=== PATIENT | female | born 1950 | race Caucasian/White ===

== ENCOUNTER → 2016-04-30 | Outpatient (CLI) | payer OTHER ==
[~2016-04-30] VITALS: Ht 154.9 cm; Wt 63.7 kg
[~2016-04-30] MED LIST: ACETAMINOPHEN-1 EAC1 PO; ALEVE220 MG PO; ASPIR 8181 MG PO; CELEXA20 MG PO; FLEXERIL PO; HYDROCODONE-AP1 EAC6 PO; HYDROCODONE-APA1 TA1 PO; LYRICA150 MG PO; RESTORIL15 MG PO; ROBAXIN500 MG PO; TRAMADOL HCL50 MG PO
--- NOTE | ~2016-04-30 | HPC ---
[facility] [address] [place] [address] PAIN MANAGEMENT CONSULTATION Name: JOVITA RONQUILLO Room #: REG JOHNNA [facility].#: [id number] Admission: 04/30/16 Attend Phys: Renan Rodrigez MD Discharge: Date of : 48 Report #: [id number] THIS REPORT FOR: //name// CC: Aiden Rodrigez DATE OF SERVICE: 04/30/2016 Followup visit for low back pain with radiculopathy secondary to spondylosis and degenerative disk disease. The patient returns to the pain clinic today for repeat of transforaminal epidural injection, she has done very well with these injections in the past, particularly injections early in 2015. She has x-ray evidence of significant degenerative disease of the lumbar spine with spondylosis greatest at L3-L4 and L-L5 and a left paracentral disk bulging and bilateral facet arthrosis causing lateral recess narrowing. There is advanced facet arthrosis and ligamentum thickening and joint effusions at L4-L5 as well as a grade 1 spondylolisthesis. Although the x-rays tend to focus more on the left. Her symptoms are more on the right and she has responded well when we treated with transforaminal injection at that location. Pain today is 8 to 9, burning, aching and shooting, worse with standing and walking. MEDICATIONS: Temazepam, Aleve, methocarbamol, tramadol, Lyrica, and citalopram. ALLERGIES: None. PAST MEDICAL HISTORY: Significant for neck fusion in 1997 and hysterectomy. PHYSICAL EXAMINATION: GENERAL: She is a familia 65-year-old pleasant, alert and oriented. VITAL SIGNS: Blood pressure 124/74, heart rate 99, respirations 20. BMI is 25.6. She has pain across her low back and tenderness. EXTREMITIES: Straight leg raising on the right reproduces pain into the right L4-L5 distribution. Sensation and strength are intact. IMPRESSION: Low back pain with radiculopathy on the right. History of 100% pain relief for up to 4 months. PLAN: Repeat right L4-L5 transforaminal epidural injection under fluoroscopic guidance. PROCEDURE: She was taken to the fluoroscopic suite for treatment, placed prone, [facility] [address] [place] [address] PAIN MANAGEMENT CONSULTATION Name: JOVITA RONQUILLO Room #: REG [facility].#: [id number] Admission: 04/30/16 Attend Phys: Renan Rodrigez MD Discharge: Date of : 48 Report #: [id number] skin prepped with ChloraPrep. Skin was anesthetized over the L4-L5 interspace and a 20-gauge Tuohy epidural needle advanced into the neural foramen using triplanar fluoroscopic views. After negative aspiration, I injected 1 mL of Omnipaque demonstrating an excellent spread along the L4 nerve root and into the epidural space. This was then followed by 3 mL of 0.5% lidocaine mixed with 80 mg of triamcinolone. She tolerated the procedure well and was observed for 30 minutes and discharged. Pain score was reduced to 2 from an 8 at her discharge. Followup visit as needed. No medications were ordered. <ELECTRONICALLY SIGNED> By: Renan Rodrigez MD 05/12/16 1130 [id number] Renan Rodrigez MD /nt
[2016-04-30 13:27] VITALS: BP 124/74
== END ==
LOC: PAIN 07:07
DX: M47.26 Other spondylosis with radiculopathy, lumbar region (principal); M51.16 Intervertebral disc disorders with radiculopathy, lumbar region; M43.22 Fusion of spine, cervical region; Z90.710 Acquired absence of both cervix and uterus; F10.21 Alcohol dependence, in remission

== ENCOUNTER → 2016-07-27 | Outpatient (CLI) | payer OTHER ==
[~2016-07-27] VITALS: Ht 157.5 cm; Wt 63.3 kg
--- NOTE | ~2016-07-27 | HPC ---
[facility] [place] [address] PAIN MANAGEMENT CONSULTATION Name: JOVITA RONQUILLO Room #: REG JOHNNA Lisandro#: [id number] Admission: 07/27/16 Attend Phys: Kirill Lux DO Discharge: Date of : 48 Report #: [id number] THIS REPORT FOR: //name// CC: Aiden Lux SUBJECTIVE: The patient is a 66-year-old female, prior seen in the pain clinic on 05/18/2016, given epidural injection with incremental improvement in baseline pain. She notes the injection afforded less relief than prior injections. I tried an L5-S1. Her pain is actually a little bit higher, radiating across the low back, right hip and leg. PHYSICAL EXAMINATION: Ongoing pain in this area. DIAGNOSTIC DATA: We reviewed the MRI from 04/11/2015, noting disk desiccation at L3-L4 with left-sided osteophyte spurring and moderate left neural foraminal narrowing. ASSESSMENT: Symptomatic lumbar radiculopathy, history of sacroiliac joint dysfunction, and trochanteric bursitis. Physical examination does not show sacroiliac pain or specific pain over the trochanteric bursa. RECOMMENDATIONS: Epidural injection under fluoroscopy today at L3-L4. Follow up in 4 weeks for reevaluation. PROCEDURE: Lumbar epidural steroid injection under fluoroscopy. PROCEDURE NOTE: After both written and informed consent to include risk of spinal cord damage, increased pain, weakness and dural puncture, the patient was taken to the fluoroscopy suite, placed in the prone position. After sterile prep and drape, a skin wheal with lidocaine was raised. A 22-gauge epidural Tuohy needle was inserted in the midline at L3-L4 with good loss to resistance. Negative aspiration for cerebrospinal fluid or blood was noted. Then 1 mL of Omnipaque under biplanar fluoroscopy showed good spread within the epidural space. This was followed with 80 mg of triamcinolone plus 1 mL of 1.5% preservative-free Xylocaine, 0.5 mL Xylocaine was then injected to flush the needle; it was removed. The patient was monitored for an appropriate period of time and discharged in good and stable condition. <ELECTRONICALLY SIGNED> By: Kirill Lux DO 07/30/16 [id number] Kirill Lux DO /nt
[2016-07-27 11:24] VITALS: BP 138/74
== END ==
LOC: PAIN 07:23
DX: M54.16 Radiculopathy, lumbar region (principal); M53.3 Sacrococcygeal disorders, not elsewhere classified; M70.60 Trochanteric bursitis, unspecified hip; F32.89 Other specified depressive episodes

== ENCOUNTER → 2016-10-15 | Outpatient (CLI) | payer OTHER ==
[~2016-10-15] VITALS: Ht 157.5 cm; Wt 67.5 kg
[~2016-10-15] MED LIST changes: +ALENDRONATE SOD70 MG PO; +ESTRACE1 TUBE VAG; +LEXAPRO 10 MG T10 M1 PO; +LIDOCAINE 22 %/30 GM MM; +METHOTREXATE 22.5 MG PO
[2016-10-15 12:52] VITALS: BP 120/70
== END | disposition home or self-care (01) ==
LOC: PAIN 06:52
DX: M54.16 Radiculopathy, lumbar region (principal); M53.3 Sacrococcygeal disorders, not elsewhere classified; M70.60 Trochanteric bursitis, unspecified hip